=== PATIENT | female | born 1965 | race Caucasian/White ===

== ENCOUNTER 2016-03-18 15:34 | Emergency (ER) | payer BC | END 2016-03-18 16:11 | disposition left against medical advice (07) | LOC: ER 15:34 | DX: Z53.20 Procedure and treatment not carried out because of patient's decision for unspecified reasons (principal) ==

== ENCOUNTER 2016-03-18 19:49 | Emergency (ER) | payer BC ==
--- NOTE | 2016-03-18 20:10 | Emergency Department Record ---
History of Present Illness - General Chief Complaint: Abdominal Pain Stated Complaint: SAMAYOA,SORE THROAT AND ABD PAIN Time Seen by Provider: 03/18/16 19:53 Source: Patient Mode of Arrival: Ambulatory Limitations: No limitations - History of Present Illness Initial Comments: 50 female presents to ED with a CC of LLQ abdominal pain symptoms for 2-3 months , but worse today and radiating into her left flank. Patient also reports sore throat symptoms and mild-moderate headache. Patient denies any health problems at her baseline, but does report that she "drinks a lot" and is concerned about pancreatitis. Patient denies any blood in the stools or loose stools. MD Complaint: Abdominal pain Onset/Timin -: Hour(s) Location: L Flank, LLQ Radiation: L flank Migration to: No migration Severity: Moderate Quality: Other Consistency: Constant Improves With: Nothing Worsens With: Nothing Context: Other Associated Symptoms: Chills, Dysuria - Related Data LMP Date: 03/03/16 Patient : No Home Medications Medication Instructions Recorded Confirmed Last Taken Fluoxetine HCl [Fluoxetine HCl] 20 mg PO DAILY 03/18/16 03/18/16 Unknown Previous Rx's Medication Instructions Recorded Amoxicillin [Amoxil] 500 mg PO TID #30 tab 03/18/16 Allergies Allergy/AdvReac Type Severity Reaction Status Date / Time Sulfa (Sulfonamide Allergy BEHAVIORAL Verified 04/23/14 15:06 Antibiotics) CHANGES Travel Screening - Travel/Exposure Within Last 30 Days Have you traveled within the last 30 days?: No - Travel/Exposure Within Last Year Have you traveled outside the [place] in the last year?: No - Additonal Travel Details Have you been exposed to anyone with a communicable illness?: No - Travel Symptoms Symptom Screening: None Review of Systems Constitutional: Denies: Chills, Fever, Malaise, Night sweats Eyes: Denies: Eye discharge, Eye pain ENT: Reports: Throat pain. Denies: Congestion, Ear pain, Epistaxis Respiratory: Denies: Cough, Dyspnea Cardiovascular: Denies: Chest pain, Dyspnea on exertion Endocrine: Denies: Fatigue, Heat or cold intolerance Gastrointestinal: Denies: Abdominal pain, Diarrhea, Nausea, Vomiting Genitourinary: Denies: Dysuria, Frequency, Hematuria Musculoskeletal: Denies: Arthralgia, Back pain, Gout, Joint swelling Skin: Denies: Bruising, Change in color, Rash Neurological: Reports: Headache. Denies: Abnormal gait, Confusion, Seizure Psychiatric: Denies: Anxiety Hematological/Lymphatic: Denies: Anemia, Blood Clots Past Medical History - SOCIAL HISTORY Smoking Status: Current every day smoker Alcohol Use: Heavy Alcohol Use Comment: 6 beers/day (none in the last 4 days) Drug Use: Occassional Drug Use Detail:: Marijuana - RESPIRATORY Hx Respiratory Disorders: No - CARDIOVASCULAR Hx Cardio Disorders: No - NEURO Hx Neuro Disorders: No - GI Hx GI Disorders: No - Hx Genitourinary Disorders: No - ENDOCRINE Hx Endocrine Disorders: No - MUSCULOSKELETAL Hx Musculoskeletal Disorders: No - PSYCH Hx Psych Problems: No - HEMATOLOGY/ONCOLOGY Hx Hematology/Oncology Disorders: No Family Medical History Any Significant Family History?: No Hx HTN: Grandparents Physical Exam - General General Appearance: Alert, Oriented x3, Cooperative, No acute distress Limitations: No limitations - Head Head exam: Atraumatic, Normocephalic, Normal inspection Head exam detail: negative: Abrasion, Contusion, Carrizales's sign, General tenderness, Hematoma, Laceration - Eye Eye exam: Normal appearance. negative: Conjunctival injection, Periorbital swelling, Periorbital tenderness, Scleral icterus - ENT Ear exam: negative: Auricular hematoma, Auricular trauma Nasal Exam: negative: Active bleeding, Discharge, Dried blood, Foreign body Mouth exam: negative: Drooling, Laceration, Muffled voice, Tongue elevation - Neck Neck exam: Normal inspection. negative: Meningismus, Tenderness - Respiratory Respiratory exam: Normal lung sounds bilaterally. negative: Respiratory distress, Rhonchi, Stridor, Wheezes - Cardiovascular Cardiovascular Exam: Regular rate, Normal rhythm, Normal heart sounds - GI/Abdominal GI/Abdominal exam: Soft, Tenderness (mild TTP LLQ, no rebound or guarding symptoms are present). negative: Rebound, Rigid - Rectal Rectal exam: Deferred - exam: Deferred - Extremities Extremities exam: Normal inspection. negative: Calf tenderness, Pedal edema, Tenderness - Back Back exam: Reports: CVA tenderness (L). Denies: CVA tenderness (R) - Neurological Neurological exam: Alert, Normal gait, Oriented X3 - Psychiatric Psychiatric exam: Normal affect, Normal mood - Skin Skin exam: Normal color. negative: Abrasion Type of lesion: negative: abrasion Course Vital Signs 03/18/16 19:52 Temperature 98.0 F Pulse Rate 95 H Respiratory 20 Rate Blood Pressure 136/80 Pulse Ox 99 - Reevaluation(s) Reevaluation #1: 03/18/16 20:41 Labs reviewed, WBC 13, Strep positive. Labs are otherwise grossly unremarkable for an acute process. Patient has just returned from CT imaging. Reevaluation #2: 03/18/16 20:58 UA reviewed, contaminated but no significant evidence for infection. CT pending. Reevaluation #3: 03/18/16 21:33 CT Abdomen/Pelvis: Right sided ovarian cyst, no other acute process. Patient was updated on all results, reports that she is feeling better, and appears stable for discharge at this time. Medical Decision Making - Lab Data Result diagrams: 03/18/16 20:15 03/18/16 20:15 Disposition Disposition: Discharge Clinical Impression: Strep pharyngitis, LLQ abdominal pain Disposition: Home, Self-Care Condition: (2) Stable Instructions: Strep Throat (ED) Additional Instructions: Return to ED if your symptoms worsen or if you have any concerns. Amoxicillin as directed. Follow-up with your family doctor in 3-5 days as directed. Prescriptions: Amoxicillin [Amoxil] 500 mg PO TID #30 tab Forms: Patient Portal Access, Return to Work/School Time of Disposition: 21:35
[2016-03-18] MEDS: KETOROLAC 30 MG/ML VIAL IVP ONE (20:15)
[2016-03-18] MEDS: 0.9 % SODIUM CHLORIDE 1000ML 1,000 ML IV SCH (20:16)
[2016-03-18 20:23] LABS: BASO % 0.2 % (0-6); EOS % 0.3 % (0-6); GRAN % 79.1 % (47-80); HEMATOCRIT 37.8 % (35.0-47.0); LYMPH % 10.6 % (16-45); MEAN CELL VOLUME 93.3 fl (81-97); MEAN CORPUSCULAR HEMOGLOBIN 32.1 pg (27-33); MEAN CORPUSCULAR HGB CONC 34.4 g/dl (32-36); MEAN PLATELET VOLUME 9.8 fl (7.4-10.4); MONO % 9.8 % (0-9); PLATELET COUNT 247 K/uL (130-400); RED BLOOD COUNT 4.05 M/uL (3.80-5.40); RED CELL DISTRIBUTION WIDTH 12.6 % (11.5-14.5)
[2016-03-18 20:34] LABS: ALBUMIN 4.4 gm/dL (3.5-5.0); ALKALINE PHOSPHATASE 64 U/L (38-126); ALT/SGPT 32 U/L (9-52); ANION GAP 9.2 (7-16); AST/SGOT 20 U/L (14-36); BILIRUBIN,TOTAL 0.18 mg/dL (0.2-1.3); BLOOD UREA NITROGEN 9 mg/dL (7-17); CARBON DIOXIDE 23.8 mmol/L (22-30); CREATININE 0.7 mg/dL (0.52-1.04); EST GLOMERULAR FILTRATION RATE > 60 ml/min; GLUCOSE,RANDOM 126 mg/dL (70-110); LIPASE 48 U/L (23-300); TOTAL PROTEIN 6.6 gm/dL (6.3-8.2)
[2016-03-18 20:48] LABS: URINE APPEARANCE CLEAR; URINE BILIRUBIN NEGATIVE (NEGATIVE); URINE BLOOD MODERATE (NEGATIVE); URINE COLOR YELLOW; URINE GLUCOSE (UA) NEGATIVE (NEGATIVE); URINE KETONE NEGATIVE (NEGATIVE); URINE LEUKOCYTE ESTERASE NEGATIVE (NEGATIVE); URINE NITRITE NEGATIVE (NEGATIVE); URINE PROTEIN NEGATIVE (NEGATIVE); URINE UROBILINOGEN 0.2 E.U./dL (0.20 - 1.00)
[2016-03-18 20:57] LABS: URINE BACTERIA FEW; URINE WBC 0 - 2 (0-2/hpf)
[2016-03-18] MEDS: AMOXICILLIN 500 MG TABLET PO ONE (21:40)
--- NOTE | 2016-03-19 12:21 | CT SCAN REPORT ---
EXAM: CT SCAN OF THE ABDOMEN AND PELVIS HISTORY: LEFT PERIUMBILICAL PAIN. TECHNIQUE: Serial axial CT scan of the abdomen and pelvis was performed at 3.75 mm intervals from the dome of the diaphragm down to the pubic symphysis following the intravenous administration of 100 ml of Omnipaque 300. No oral contrast was administered. No comparison studies are available. FINDINGS: The lung windows of the lung bases demonstrate no CT evidence of a focal infiltrate or pleural effusion. The visualized heart size and contours are within normal limits. The liver, spleen, pancreas, bilateral adrenal glands, and gallbladder are unremarkable. There is no CT evidence of hydronephrosis or hydroureter. No renal or ureteral calculi are noted. The contour, caliber, and flow within the abdominal aorta is within normal limits. There is no CT evidence of retroperitoneal, pelvic, or inguinal lymphadenopathy. The bowel gas pattern is nonspecific and nonobstructive. There is no CT evidence of free intraperitoneal air. No obvious appendicitis is noted. The uterus is unremarkable. The patient has a 2.3 cm cyst within the right ovary. Occasional follicles are identified within the left ovary. A questionable small amount of fluid within the right adnexal region is noted. These findin+gs may represent a hemorrhagic ovarian cyst. If there is further clinical concern then an ultrasound examination of the pelvis can be obtained for further evaluation. The urinary bladder is unremarkable. The bone windows demonstrate no CT evidence of a fracture or dislocation of the visualized osseous structures of the abdomen or pelvis. IMPRESSION: 1. A RIGHT OVARIAN CYST IS NOTED WITH QUESTION OF A SMALL AMOUNT OF FREE FLUID WITHIN THE RIGHT ADNEXAL REGION. THESE FINDINGS MAY REPRESENT HEMORRHAGIC OVARIAN CYST. IF THERE IS FURTHER CLINICAL CONCERN THEN AN ULTRASOUND EXAMINATION OF THE PELVIS CAN BE OBTAINED. 2. OTHERWISE, NO CT EVIDENCE OF AN ACUTE INTRAABDOMINAL PROCESS. JOB NUMBER: [id number] [facility]
== END 2016-03-18 21:44 | disposition home or self-care (01) ==
LOC: ER 19:49
DX: J02.0 Streptococcal pharyngitis (principal); R10.32 Left lower quadrant pain; R51 Headache; F17.210 Nicotine dependence, cigarettes, uncomplicated
CPT/HCPCS: 99284 ×2; 96374; 83690; 85025; 80053; 81001; 87880; 74177; Q9967; J1885; J7030

== ENCOUNTER 2017-08-31 17:30 | Emergency (ER) | payer BC ==
[2017-08-31] MEDS ORDERED: KETOROLAC 30 MG/ML VIAL IVP ONE (18:00)
[2017-08-31] MEDS ORDERED: RABIES IMMUNE GLOBULIN/PF 150 UNIT/ML, 10ML VIAL IM ONE (18:00)
[2017-08-31] MEDS ORDERED: AMPICILLIN SODIUM/SULBACTAM NA 3 G in 0.9 % SODIUM CHLORIDE 100ML 100 ML IVPB ONE (18:00)
[2017-08-31] MEDS ORDERED: 0.9 % SODIUM CHLORIDE 1,000 ML BAG IV ONE (18:00)
[2017-08-31] MEDS ORDERED: RABIES VACCINE 2.5 IU VIAL IM ONE (18:00)
--- NOTE | 2017-08-31 18:09 | Emergency Department Record ---
History of Present Illness - General Chief Complaint: Headache Migraine Stated Complaint: HEADACHE x5DAYS,CAT BITE RT THUMB Time Seen by Provider: 08/31/17 17:32 Source: Patient Mode of Arrival: Ambulatory Limitations: No limitations - History of Present Illness Initial Comments: 52 yo female presents after a cat bite to the right thumb yesterday at 10pm. She has numerous stray cats living under her porch. She is not sure of which cat bit her. She has about 7-9. No streaking of redness. Full ROM. She also reports sinus congestion, cough, and headache the last 5 days. The facial pain is on the right side. Worse with cough. Gradual onset. It seems to be worse at night. No fever. No swollen glands. Non productive cough but she is a smoker. MD Complaint: Headache, Other (Cat bite to right thumb) Onset/Timin -: Days(s) Location: Diffuse, Frontal, Temporal, Other Quality: Aching Consistency: Intermittent Improves With: Nothing Worsens With: Other (cough) Associated Symptoms: Photophobia, Sensitivity to sound Treatments Prior to Arrival: None, Acetaminophen - Related Data Previous Rx's Medication Instructions Recorded Amoxicillin/Potassium Clav 1 tab PO BID #14 tab 08/31/17 [Augmentin 875-125 Tablet] Allergies Allergy/AdvReac Type Severity Reaction Status Date / Time Sulfa (Sulfonamide Allergy BEHAVIORAL Unverified 08/31/17 17:10 Antibiotics) CHANGES Travel Screening - Travel/Exposure Within Last 30 Days Have you traveled within the last 30 days?: No - Travel/Exposure Within Last Year Have you traveled outside the [place] in the last year?: No - Additonal Travel Details Have you been exposed to anyone with a communicable illness?: No - Travel Symptoms Symptom Screening: None Review of Systems Constitutional: Denies: Chills, Fever, Weakness Eyes: Denies: Eye discharge, Eye pain, Photophobia, Vision change ENT: Reports: Congestion, Throat pain. Denies: Epistaxis Respiratory: Reports: Cough. Denies: Dyspnea, Hemoptysis, Wheezes Cardiovascular: Denies: Chest pain, Palpitations, Syncope Endocrine: Denies: Fatigue Gastrointestinal: Denies: Abdominal pain, Diarrhea, Nausea, Vomiting Genitourinary: Denies: Dysuria, Urgency Musculoskeletal: Denies: Arthralgia, Back pain, Myalgia Skin: Reports: Other (cat bite to right thumb). Denies: Bruising, Change in color, Rash Neurological: Denies: Headache Psychiatric: Denies: Anxiety Hematological/Lymphatic: Denies: Blood Clots, Easy bleeding, Easy bruising, Swollen glands Past Medical History - SOCIAL HISTORY Smoking Status: Current every day smoker Alcohol Use: None Drug Use: None - RESPIRATORY Hx Respiratory Disorders: No - CARDIOVASCULAR Hx Cardio Disorders: No - NEURO Hx Neuro Disorders: No - GI Hx GI Disorders: No - Hx Genitourinary Disorders: No - ENDOCRINE Hx Endocrine Disorders: No - MUSCULOSKELETAL Hx Musculoskeletal Disorders: No - PSYCH Hx Psych Problems: No - HEMATOLOGY/ONCOLOGY Hx Hematology/Oncology Disorders: No Family Medical History Any Significant Family History?: No Hx HTN: Grandparents Physical Exam - General General Appearance: Alert, Oriented x3, Cooperative, No acute distress Limitations: No limitations - Head Head exam: Atraumatic, Normal inspection - Eye Eye exam: Normal appearance, PERRL, EOMI. negative: Conjunctival injection, Nystagmus, Scleral icterus - ENT ENT exam: Normal exam, Mucous membranes moist, Normal orophraynx Ear exam: Normal external inspection Nasal Exam: Normal inspection Mouth exam: Normal external inspection Teeth exam: Normal inspection Throat exam: Normal inspection. negative: Tonsillar erythema, Tonsillar exudate - Neck Neck exam: Normal inspection, Full ROM. negative: Lymphadenopathy, Meningismus , Tenderness, Thyromegaly - Respiratory Respiratory exam: Normal lung sounds bilaterally. negative: Respiratory distress - Cardiovascular Cardiovascular Exam: Regular rate, Normal rhythm, Normal heart sounds - GI/Abdominal GI/Abdominal exam: Soft. negative: Tenderness - Rectal Rectal exam: Deferred - exam: Deferred - Extremities Extremities exam: Full ROM, Normal capillary refill, Tenderness. negative: Normal inspection Image of Hand: 1 - 5mm papule with trace amount of drainage, no cellulitis or streaking redness, full ROM - Back Back exam: Reports: Full ROM - Neurological Neurological exam: Alert, CN II-XII intact, Normal gait, Oriented X3, Reflexes normal. negative: Abnormal gait, Altered, Motor sensory deficit - Psychiatric Psychiatric exam: Normal affect, Normal mood - Skin Skin exam: Dry, Intact, Normal color, Warm Course Vital Signs 08/31/17 17:39 Temperature 98.4 F Pulse Rate 78 Respiratory 16 Rate Blood Pressure 132/80 Pulse Ox 99 Medical Decision Making - Lab Data Result diagrams: 08/31/17 18:10 08/31/17 18:10 Disposition Disposition: Discharge Clinical Impression: Cat bite Qualifiers: Encounter type: initial encounter Qualified Code(s): W55.01XA - Bitten by cat, initial encounter Headache Qualifiers: Headache type: unspecified Headache chronicity pattern: acute headache Intractability: not intractable Qualified Code(s): R51 - Headache Disposition: Home, Self-Care Condition: (1) Good Instructions: Animal Bite (ED), Acute Headache (ED) Additional Instructions: Return for the additional Rabies shots on September 03, and September 14. Return sooner if worse, red, pain or pus Prescriptions: Amoxicillin/Potassium Clav [Augmentin 875-125 Tablet] 1 tab PO BID #14 tab Forms: Patient Portal Access Time of Disposition: 20:00 Quality - Quality Measures Quality Measures: N/A - Blood Pressure Screening Does Patient Have Any of the Following: No Blood Pressure Classification: Hypertensive Reading Systolic Measurement: 152 Diastolic Measurement: 95 Screening for High Blood Pressure: < Pre-Hypertensive BP, F/U Documented > [ G8950] Pre-Hypertensive Follow-up Interventions: Referral to alternative/primary care provider.
[2017-08-31 18:20] LABS: BASO % 0.2 % (0-6); EOS % 0.9 % (0-6); GRAN % 75.6 % (47-80); HEMATOCRIT 40.1 % (35.0-47.0); HEMOGLOBIN 13.4 gm/dl (11.6-16.0); LYMPH % 15.9 % (16-45); MEAN CELL VOLUME 96.9 fl (81-97); MEAN CORPUSCULAR HEMOGLOBIN 32.4 pg (27-33); MEAN CORPUSCULAR HGB CONC 33.4 g/dl (32-36); MEAN PLATELET VOLUME 10.1 fl (7.4-10.4); MONO % 7.4 % (0-9); PLATELET COUNT 292 K/uL (130-400); RED BLOOD COUNT 4.14 M/uL (3.80-5.40); RED CELL DISTRIBUTION WIDTH 13.3 % (11.5-14.5); WHITE BLOOD COUNT W/O DIFF 12.1 K/uL (4.2-12.2)
[2017-08-31 18:30] LABS: BLOOD UREA NITROGEN 13 mg/dL (6-20); CREATININE 0.7 mg/dL (0.5-0.9); EST GLOMERULAR FILTRATION RATE > 60 mL/min
[2017-08-31 18:33] LABS: GLUCOSE,RANDOM 129 mg/dL (74-109)
--- NOTE | 2017-08-31 18:39 | Emergency Department Record ---
History of Present Illness - General Chief Complaint: Headache Migraine Stated Complaint: HEADACHE x5DAYS,CAT BITE RT THUMB Time Seen by Provider: 08/31/17 17:32 Mode of Arrival: Ambulatory Limitations: No limitations - History of Present Illness Onset/Timin -: Days(s) Location: Diffuse, Frontal, Temporal, Other Quality: Aching Consistency: Intermittent Improves With: Nothing Worsens With: Other (cough) Associated Symptoms: Photophobia, Sensitivity to sound Treatments Prior to Arrival: None, Acetaminophen - Related Data Previous Rx's Medication Instructions Recorded Amoxicillin/Potassium Clav 1 tab PO BID #14 tab 08/31/17 [Augmentin 875-125 Tablet] Allergies Allergy/AdvReac Type Severity Reaction Status Date / Time Sulfa (Sulfonamide Allergy BEHAVIORAL Unverified 08/31/17 17:10 Antibiotics) CHANGES Travel Screening - Travel/Exposure Within Last 30 Days Have you traveled within the last 30 days?: No - Travel/Exposure Within Last Year Have you traveled outside the [place] in the last year?: No - Additonal Travel Details Have you been exposed to anyone with a communicable illness?: No - Travel Symptoms Symptom Screening: None Review of Systems Constitutional: Denies: Chills, Fever, Weakness Eyes: Denies: Eye discharge, Eye pain, Photophobia, Vision change ENT: Reports: Congestion, Throat pain. Denies: Epistaxis Respiratory: Reports: Cough. Denies: Dyspnea, Hemoptysis, Wheezes Cardiovascular: Denies: Chest pain, Palpitations, Syncope Endocrine: Denies: Fatigue Gastrointestinal: Denies: Abdominal pain, Diarrhea, Nausea, Vomiting Genitourinary: Denies: Dysuria, Urgency Musculoskeletal: Denies: Arthralgia, Back pain, Myalgia Skin: Reports: Other (cat bite to right thumb). Denies: Bruising, Change in color, Rash Neurological: Denies: Headache Psychiatric: Denies: Anxiety Hematological/Lymphatic: Denies: Blood Clots, Easy bleeding, Easy bruising, Swollen glands Past Medical History - SOCIAL HISTORY Smoking Status: Current every day smoker Alcohol Use: None Drug Use: None - RESPIRATORY Hx Respiratory Disorders: No - CARDIOVASCULAR Hx Cardio Disorders: No - NEURO Hx Neuro Disorders: No - GI Hx GI Disorders: No - Hx Genitourinary Disorders: No - ENDOCRINE Hx Endocrine Disorders: No - MUSCULOSKELETAL Hx Musculoskeletal Disorders: No - PSYCH Hx Psych Problems: No - HEMATOLOGY/ONCOLOGY Hx Hematology/Oncology Disorders: No Family Medical History Any Significant Family History?: No Hx HTN: Grandparents Physical Exam - General Limitations: No limitations Course Vital Signs 08/31/17 17:39 Temperature 98.4 F Pulse Rate 78 Respiratory 16 Rate Blood Pressure 132/80 Pulse Ox 99 - Reevaluation(s) Reevaluation #1: 08/31/17 18:37 Laboratory studies were reviewed and are grossly unremarkable for an acute process. Patient was updated on all results, reports improvement in her headache symptoms and appears stable for discharge with outpatient treatment for early cellulitis resulting from cat bite. Patient agrees with the plan of care as discussed and appears stable for discharge on Augmentin with return for subsequent rabies vaccinations. Medical Decision Making - Lab Data Result diagrams: 08/31/17 18:10 08/31/17 18:10 Lab Results 08/31/17 08/31/17 Range/Units 18:10 18:10 WBC 12.1 (4.2-12.2) K/uL RBC 4.14 (3.80-5.40) M/uL Hgb 13.4 (11.6-16.0) gm/dl Hct 40.1 (35.0-47.0) % MCV 96.9 (81-97) fl MCH 32.4 (27-33) pg MCHC 33.4 (32-36) g/dl RDW 13.3 (11.5-14.5) % Plt Count 292 (130-400) K/uL MPV 10.1 (7.4-10.4) fl Gran % 75.6 (47-80) % Lymphocytes % 15.9 L (16-45) % Monocytes % 7.4 (0-9) % Eosinophils % 0.9 (0-6) % Basophils % 0.2 (0-6) % Sodium 141 (136-145) mmol/L Potassium 3.4 (3.4-4.5) mmol/L Chloride 99 (98-107) mmol/L Carbon Dioxide 23.0 (22-29) mmol/L Anion Gap 19.0 H (7-16) BUN 13 (6-20) mg/dL Creatinine 0.7 (0.5-0.9) mg/dL Estimated GFR > 60 mL/min Random Glucose 129 H (74-109) mg/dL Calcium 8.8 (8.6-10.0) mg/dL Disposition Disposition: Discharge Clinical Impression: Cat bite Qualifiers: Encounter type: initial encounter Qualified Code(s): W55.01XA - Bitten by cat, initial encounter Headache Qualifiers: Headache type: unspecified Headache chronicity pattern: acute headache Intractability: not intractable Qualified Code(s): R51 - Headache Condition: (1) Good Instructions: Animal Bite (ED), Acute Headache (ED) Additional Instructions: Return for the additional Rabies shots on September 03, and September 14. Return sooner if worse, red, pain or pus Prescriptions: Amoxicillin/Potassium Clav [Augmentin 875-125 Tablet] 1 tab PO BID #14 tab Forms: Patient Portal Access Time of Disposition: 18:39 Quality - Quality Measures Quality Measures: N/A - Blood Pressure Screening Does Patient Have Any of the Following: No Blood Pressure Classification: Pre-Hypertensive BP Reading Systolic Measurement: 132 Diastolic Measurement: 80 Screening for High Blood Pressure: < Pre-Hypertensive BP, F/U Documented > [ G8950] Pre-Hypertensive Follow-up Interventions: Referral to alternative/primary care provider.
== END 2017-08-31 19:22 | disposition home or self-care (01) ==
LOC: ER 17:30
DX: S61.051A Open bite of right thumb without damage to nail, initial encounter (principal); L03.011 Cellulitis of right finger; W55.01XA Bitten by cat, initial encounter
CPT/HCPCS: 99284 ×2; 96372; 96365; 96375; 85025; 80048; 90675; 90375; J0295; J1885; J7030

== ENCOUNTER 2017-09-03 16:03 | Emergency (ER) | payer BC ==
[2017-09-03] MEDS: RABIES VACCINE 2.5 IU VIAL IM ONE (16:27)
--- NOTE | 2017-09-03 16:40 | Emergency Department Record ---
History of Present Illness - General Chief Complaint: Wound, check Stated Complaint: RABIES SHOT #1 Time Seen by Provider: 09/03/17 16:30 Source: Patient Mode of arrival: Ambulatory Limitations: No limitations - History of Present Illness Initial Comments: pt here for 2nd rabies in series for cat bite. wound is healing well MD Complaint: Wound re-check, Other Onset/Timin -: Days(s) Initial Visit For: Animal bite Returns Today for: Rabies shot, Wound recheck Symptoms Since Prior Visit: No new symptoms Associated Symptoms: None - Related Data Previous Rx's Medication Instructions Recorded Amoxicillin/Potassium Clav 1 tab PO BID #14 tab 08/31/17 [Augmentin 875-125 Tablet] Allergies Allergy/AdvReac Type Severity Reaction Status Date / Time Sulfa (Sulfonamide Allergy BEHAVIORAL Verified 09/03/17 16:17 Antibiotics) CHANGES Travel Screening - Travel/Exposure Within Last 30 Days Have you traveled within the last 30 days?: No - Travel/Exposure Within Last Year Have you traveled outside the [place] in the last year?: No - Additonal Travel Details Have you been exposed to anyone with a communicable illness?: No - Travel Symptoms Symptom Screening: None Review of Systems Reviewed: No additional complaints except as noted below Constitutional: Reports: As per HPI. Denies: Chills, Fever, Malaise, Night sweats, Weakness, Weight change Eyes: Reports: As per HPI. Denies: Eye discharge, Eye pain, Photophobia, Vision change ENT: Reports: As per HPI. Denies: Congestion, Dental pain, Ear pain, Epistaxis , Hearing loss, Throat pain Respiratory: Reports: As per HPI. Denies: Cough, Dyspnea, Hemoptysis, Stridor, Wheezes Cardiovascular: Reports: As per HPI. Denies: Arrhythmia, Chest pain, Dyspnea on exertion, Edema, Murmurs, Orthopnea, Palpitations, Paroxysmal nocturnal dyspnea, Rheumatic Fever, Syncope Endocrine: Reports: As per HPI. Denies: Fatigue, Heat or cold intolerance, Polydipsia, Polyuria Gastrointestinal: Reports: As per HPI. Denies: Abdominal pain, Constipation, Diarrhea, Hematemesis, Hematochezia, Melena, Nausea, Vomiting Genitourinary: Reports: As per HPI. Denies: Abnormal menses, Discharge, Dyspareunia, Dysuria, Frequency, Hematuria, Incontinence, Retention, Urgency Musculoskeletal: Reports: As per HPI. Denies: Arthralgia, Back pain, Gout, Joint swelling, Myalgia, Neck pain Skin: Reports: As per HPI. Denies: Bruising, Change in color, Change in hair/ nails, Lesions, Pruritus, Rash Neurological: Reports: As per HPI. Denies: Abnormal gait, Confusion, Headache, Numbness, Paresthesias, Seizure, Tingling, Tremors, Vertigo, Weakness Psychiatric: Reports: As per HPI. Denies: Anxiety, Auditory hallucinations, Depression, Homicidal thoughts, Suicidal thoughts, Visual hallucinations Hematological/Lymphatic: Reports: As per HPI. Denies: Anemia, Blood Clots, Easy bleeding, Easy bruising, Swollen glands Past Medical History - SOCIAL HISTORY Smoking Status: Current every day smoker Alcohol Use: None Drug Use: None - RESPIRATORY Hx Respiratory Disorders: No - CARDIOVASCULAR Hx Cardio Disorders: No - NEURO Hx Neuro Disorders: No - GI Hx GI Disorders: No - Hx Genitourinary Disorders: No - ENDOCRINE Hx Endocrine Disorders: No - MUSCULOSKELETAL Hx Musculoskeletal Disorders: No - PSYCH Hx Psych Problems: No - HEMATOLOGY/ONCOLOGY Hx Hematology/Oncology Disorders: No Family Medical History Any Significant Family History?: Yes Hx HTN: Grandparents Physical Exam - General General Appearance: Alert, Oriented x3, Cooperative, Mild distress - Head Head exam: Normal inspection - Eye Eye exam: Normal appearance, PERRL, EOMI Pupils: Normal accommodation - ENT ENT exam: Normal exam, Mucous membranes moist, Normal external ear exam, Normal orophraynx Ear exam: Normal external inspection. negative: External canal tenderness Nasal Exam: Normal inspection. negative: Discharge, Sinus tenderness Mouth exam: Normal external inspection, Tongue normal Teeth exam: Normal inspection. negative: Dental caries Throat exam: Normal inspection. negative: Tonsillar erythema, Tonsillar exudate - Neck Neck exam: Normal inspection, Full ROM. negative: Tenderness - Respiratory Respiratory exam: negative: Respiratory distress - Cardiovascular Cardiovascular Exam: Regular rate - GI/Abdominal GI/Abdominal exam: Soft, Normal bowel sounds. negative: Tenderness - Rectal Rectal exam: Deferred - exam: Deferred - Extremities Extremities exam: Normal inspection, Full ROM, Normal capillary refill. negative: Tenderness - Back Back exam: Reports: Normal inspection, Full ROM. Denies: Muscle spasm, Rash noted, Tenderness - Neurological Neurological exam: Alert, CN II-XII intact, Normal gait, Oriented X3 - Psychiatric Psychiatric exam: Normal affect, Normal mood - Skin Skin exam: Dry, Intact, Normal color, Warm Type of lesion: Bite/sting Course Vital Signs 09/03/17 16:12 Temperature 97.8 F Pulse Rate 69 Respiratory 16 Rate Blood Pressure 129/83 Pulse Ox 98 Disposition Disposition: Discharge Clinical Impression: Rabies, need for prophylactic vaccination against Disposition: Home, Self-Care Condition: (1) Good Instructions: Rabies (ED) Additional Instructions: follow up with family doctor. return sooner if worse. return for further rabies Quality - Quality Measures Quality Measures: N/A - Blood Pressure Screening Does Patient Have Any of the Following: No Blood Pressure Classification: Pre-Hypertensive BP Reading Systolic Measurement: 129 Diastolic Measurement: 83 Screening for High Blood Pressure: < Pre-Hypertensive BP, F/U Documented > [ G8950] Pre-Hypertensive Follow-up Interventions: Follow-up with rescreen every year.
== END 2017-09-03 16:47 | disposition home or self-care (01) ==
LOC: ER 16:03
DX: Z29.14 Encounter for prophylactic rabies immune globulin (principal); S61.051A Open bite of right thumb without damage to nail, initial encounter; W55.01XA Bitten by cat, initial encounter
CPT/HCPCS: 90675; 96372; 99282

== ENCOUNTER 2017-09-07 16:19 | Emergency (ER) | payer BC ==
[2017-09-07] MEDS ORDERED: RABIES VACCINE 2.5 IU VIAL IM ONE (16:25)
--- NOTE | 2017-09-07 16:32 | Emergency Department Record ---
History of Present Illness - General Chief Complaint: Recheck - Other Stated Complaint: 2ND RABIES SHOT Time Seen by Provider: 09/07/17 16:28 Source: Patient Mode of arrival: Ambulatory Limitations: No limitations - History of Present Illness Initial Comments: reports for Rabies immunizations as scheduled. No complaints. - Related Data Previous Rx's Medication Instructions Recorded Amoxicillin/Potassium Clav 1 tab PO BID #14 tab 08/31/17 [Augmentin 875-125 Tablet] Allergies Allergy/AdvReac Type Severity Reaction Status Date / Time Sulfa (Sulfonamide Allergy BEHAVIORAL Verified 09/07/17 16:27 Antibiotics) CHANGES Review of Systems Reviewed: No additional complaints except as noted below Constitutional: Denies: Chills, Fever Skin: Denies: Change in color, Lesions Past Medical History - SOCIAL HISTORY Smoking Status: Current every day smoker Alcohol Use: None Drug Use: None - RESPIRATORY Hx Respiratory Disorders: No - CARDIOVASCULAR Hx Cardio Disorders: No - NEURO Hx Neuro Disorders: No - GI Hx GI Disorders: No - Hx Genitourinary Disorders: No - ENDOCRINE Hx Endocrine Disorders: No - MUSCULOSKELETAL Hx Musculoskeletal Disorders: No - PSYCH Hx Psych Problems: No - HEMATOLOGY/ONCOLOGY Hx Hematology/Oncology Disorders: No Family Medical History Any Significant Family History?: Yes Hx HTN: Grandparents Physical Exam - General General Appearance: Alert, Oriented x3, Cooperative, No acute distress - Head Head exam: Atraumatic - Skin Skin exam: Intact, Normal color Type of lesion: negative: Abscess, Laceration, Rash Course - Reevaluation(s) Reevaluation #1: 09/07/17 16:30 Seen and Immunization provide. Continue series as directed Medical Decision Making - Management Options MDM Management: No Additional Work-up Planned Disposition Disposition: Discharge Clinical Impression: Rabies, need for prophylactic vaccination against Disposition: Home, Self-Care Return To Work/School Note Provided: Yes Condition: (1) Good Quality - Quality Measures Quality Measures: N/A - Blood Pressure Screening Does Patient Have Any of the Following: No Systolic Measurement: ~ Screening for High Blood Pressure: < Pre-Hypertensive BP, F/U Documented > [ G8950] Pre-Hypertensive Follow-up Interventions: Lifestyle modifications. Lifestyle Modification: Dietary Approaches to Stop Hypertension (DASH) Eating Plan, Dietary Sodium Restriction
== END 2017-09-07 16:57 | disposition home or self-care (01) ==
LOC: ER 16:19
DX: Z29.14 Encounter for prophylactic rabies immune globulin (principal); S61.051A Open bite of right thumb without damage to nail, initial encounter; W55.01XA Bitten by cat, initial encounter; F17.210 Nicotine dependence, cigarettes, uncomplicated
CPT/HCPCS: 90675; 99282

== ENCOUNTER 2017-09-14 16:59 | Emergency (ER) | payer BC ==
[2017-09-14] MEDS ORDERED: RABIES VACCINE 2.5 IU VIAL IM ONE (17:06)
--- NOTE | 2017-09-14 17:15 | Emergency Department Record ---
History of Present Illness - General Chief Complaint: Wound, check Stated Complaint: RABIES SHOT Time Seen by Provider: 09/14/17 17:13 Source: Patient Mode of arrival: Ambulatory Limitations: No limitations - History of Present Illness Initial Comments: 52 yo female presents for her 4th and final rabies shot. No complications with the prior shots. Complaint: Other (Rabies shot) -: Days(s) Returns Today for: Rabies shot, Wound recheck Symptoms Since Prior Visit: No new symptoms Associated Symptoms: None - Related Data Previous Rx's Medication Instructions Recorded Amoxicillin/Potassium Clav 1 tab PO BID #14 tab 08/31/17 [Augmentin 875-125 Tablet] Allergies Allergy/AdvReac Type Severity Reaction Status Date / Time Sulfa (Sulfonamide Allergy BEHAVIORAL Verified 09/07/17 16:27 Antibiotics) CHANGES Travel Screening - Travel/Exposure Within Last 30 Days Have you traveled within the last 30 days?: No - Travel/Exposure Within Last Year Have you traveled outside the [place] in the last year?: No - Additonal Travel Details Have you been exposed to anyone with a communicable illness?: No - Travel Symptoms Symptom Screening: None Review of Systems Constitutional: Denies: Chills, Fever, Malaise, Weakness Eyes: Denies: Eye discharge ENT: Denies: Congestion, Throat pain Respiratory: Denies: Cough Endocrine: Denies: Fatigue Genitourinary: Denies: Dysuria Musculoskeletal: Denies: Arthralgia, Back pain, Myalgia Skin: Denies: Bruising, Change in color, Rash Neurological: Denies: Headache Psychiatric: Denies: Anxiety Hematological/Lymphatic: Denies: Easy bleeding, Easy bruising Past Medical History - SOCIAL HISTORY Smoking Status: Current every day smoker Alcohol Use: None Drug Use: None - RESPIRATORY Hx Respiratory Disorders: No - CARDIOVASCULAR Hx Cardio Disorders: No - NEURO Hx Neuro Disorders: No - GI Hx GI Disorders: No - Hx Genitourinary Disorders: No - ENDOCRINE Hx Endocrine Disorders: No - MUSCULOSKELETAL Hx Musculoskeletal Disorders: No - PSYCH Hx Psych Problems: No - HEMATOLOGY/ONCOLOGY Hx Hematology/Oncology Disorders: No Family Medical History Any Significant Family History?: Yes Hx HTN: Grandparents Physical Exam - General General Appearance: Alert, Oriented x3, Cooperative, No acute distress Limitations: No limitations - Head Head exam: Atraumatic, Normal inspection - Eye Eye exam: Normal appearance. negative: Conjunctival injection - ENT ENT exam: Normal exam Ear exam: Normal external inspection Nasal Exam: Normal inspection - Neck Neck exam: Normal inspection - Extremities Extremities exam: Normal inspection - Neurological Neurological exam: Alert, Oriented X3 - Psychiatric Psychiatric exam: negative: Agitated, Anxious - Skin Skin exam: Dry, Intact, Normal color, Warm Course Vital Signs 09/14/17 17:03 Temperature 97.7 F Pulse Rate 71 Respiratory 18 Rate Blood Pressure 138/88 Pulse Ox 99 - Reevaluation(s) Reevaluation #1: 09/14/17 17:14 final rabies vaccine provided Disposition Disposition: Discharge Clinical Impression: Rabies, need for prophylactic vaccination against Disposition: Home, Self-Care Condition: (1) Good Instructions: Rabies Vaccine (ED) Additional Instructions: Return if you have any concerns after this final rabies shot Time of Disposition: 17:15 Quality - Quality Measures Quality Measures: N/A - Blood Pressure Screening Does Patient Have Any of the Following: No Blood Pressure Classification: Pre-Hypertensive BP Reading Systolic Measurement: 138 Diastolic Measurement: 88 Screening for High Blood Pressure: < Pre-Hypertensive BP, F/U Documented > [ G8950] Pre-Hypertensive Follow-up Interventions: Referral to alternative/primary care provider.
== END 2017-09-14 17:28 | disposition home or self-care (01) ==
LOC: ER 16:59
DX: Z29.14 Encounter for prophylactic rabies immune globulin (principal); F17.210 Nicotine dependence, cigarettes, uncomplicated
CPT/HCPCS: 90675; 96372; 99282